=== PATIENT | female | born 1935 | race Caucasian/White ===

== ENCOUNTER 2017-04-18 10:11 | Inpatient (IN) | payer MEDICARE, BC ==
[~2017-04-18] VITALS: Ht 154.9 cm; Wt 59.0 kg
[~2017-04-18 10:11] MED LIST: ALORA1 EAC1 TOP; AUGMENTIN PO; B-12 IM; BENTYL 10 MG CA10 M1 PO; CARISOPRODOL 3350 MG PO; CELEXA20 MG PO; COUMADIN 2.5MG2.5 M1 PO; COUMADIN 4 MG TA4 M1 PO; DARVOCET-N 1001 EAC1 PO; ISOSORBIDE DINI30 MG PO; LEVSIN0.125 MG PO; OSTERA TABLET1 EAC1 PO; OXYCODONE HCL 55 MG PO; OXYCODONE HCL10 M1 PO; OXYIR 5 MG CAPSU5 M1 PO; POTASSIUM PO; PREMARIN VAG CREAM VAG; PROCTOFOAM-HC F10 GM TOP; TRAMADOL 50 MG50 MG PO; TUMS CHEWA500 MG/11; VITAMIN D 5050000 I1 PO; VOLTAREN GEL 1100 G2 TOP; ZOCOR 20 MG TAB20 M1 PO; ZOLOFT PO
[2017-04-18 10:26] VITALS: BP 161/79
[2017-04-18] MEDS ORDERED: COUMADIN 4 MG TA4 M1 PO (10:47)
[2017-04-18 11:12] LABS: ABSOLUTE BASOPHILS 0.1 thou/uL (0.0-0.2); ABSOLUTE EOSINOPHILS 0.3 thou/uL (0.0-0.7); ABSOLUTE LYMPHOCYTES 0.5 thou/uL (0.8-5.3); ABSOLUTE MONOCYTES 0.5 thou/uL (0.0-1.2); ABSOLUTE NEUTROPHILS 3.7 thou/uL (1.6-8.1); EOSINOPHILS 6.3 %; HEMOGLOBIN 11.6 gm/dL (12.0-15.0); LYMPHOCYTES 10.4 %; MCH 27.8 pg (26.0-34.0); MCHC 32.1 g/dL (28.0-37.0); MCV 86.7 fL (80.0-100.0); MONOCYTES 10.5 %; MPV 8.3 fl. (7.2-11.1); NUCLEATED RBCS 0 /100WBC; PLATELET COUNT* 194 thou/uL (150-400); POLYS 71.8 %; RBC 4.16 mil/uL (4.20-5.00); RDW-CV 15.5 % (10.5-14.5); WBC 5.2 thou/uL (4.0-11.0)
[2017-04-18 11:22] LABS: ANION GAP 9 mmol/L (7-16); BUN 24 mg/dL (7-18); CALCIUM 8.9 mg/dL (8.5-10.1); CHLORIDE 108 mmol/L (98-107); CO2 27 mmol/L (21-32); CREATININE 1.3 mg/dL (0.6-1.3); GLUCOSE 91 mg/dL (70-99); POTASSIUM 3.8 mmol/L (3.5-5.1); SODIUM 144 mmol/L (136-145)
[2017-04-18 11:23] LABS: APTT 32.7 Seconds (25.0-31.3); INR 2.6; PROTIME 25.4 Seconds (9.20-11.50)
[2017-04-18 11:29] LABS: ALBUMIN 3.4 g/dL (3.4-5.0); ALKALINE PHOSPHATASE 79 U/L (46-116); SGOT 24 U/L (15-37); SGPT 16 U/L (30-65); TOTAL BILIRUBIN 0.5 mg/dL (<0.1-1.0); TOTAL PROTEIN 6.7 g/dL (6.4-8.2); TROPONIN-I LEVEL <0.06 ng/mL (<0.06)
[2017-04-18 12:17] LABS: URINE BILIRUBIN NEGATIVE (Negative); URINE BLOOD 2+ (Negative); URINE CLARITY CLEAR; URINE COLOR YELLOW; URINE GLUCOSE-RANDOM NEGATIVE (Negative); URINE KETONES NEGATIVE (Negative); URINE LEUKOCYTES-REFLEX NEGATIVE (Negative); URINE NITRITE-REFLEX NEGATIVE (Negative); URINE PROTEIN NEGATIVE (Negative); URINE UROBILINOGEN 0.2 E.U./dl (0.2-1.0)
[2017-04-18 12:25] LABS: CASTS None Seen /LPF (None Seen); CRYSTALS None Seen /LPF (None Seen); SQUAMOUS 0-3 Few /LPF (0-3)
[2017-04-18 12:26] LABS: BACTERIA-REFLEX None Seen /HPF (None Seen); URINE RBC 3-10 Few /HPF (0-2); URINE WBC-REFLEX 0-5 Rare /HPF (0-5)
[2017-04-18 15:59] LABS: CALCIUM 8.7 mg/dL (8.5-10.1); CREATININE 1.2 mg/dL (0.6-1.3); MAGNESIUM 1.4 mg/dL (1.8-2.4); POTASSIUM 3.9 mmol/L (3.5-5.1)
[2017-04-18 16:34] VITALS: BP 138/64
[2017-04-18 17:00] VITALS: BP 119/74
[2017-04-18] MEDS ORDERED: ZOCOR20 MG PO (17:56)
[2017-04-18 21:00] VITALS: BP 102/54
[2017-04-19 01:02] VITALS: BP 117/60
[2017-04-19 04:30] LABS: ABSOLUTE BASOPHILS 0.1 thou/uL (0.0-0.2); ABSOLUTE EOSINOPHILS 0.3 thou/uL (0.0-0.7); ABSOLUTE LYMPHOCYTES 1.1 thou/uL (0.8-5.3); ABSOLUTE MONOCYTES 0.7 thou/uL (0.0-1.2); ABSOLUTE NEUTROPHILS 4.1 thou/uL (1.6-8.1); BASOPHILS 0.9 %; EOSINOPHILS 5.5 %; HEMATOCRIT 27.8 % (37.0-47.0); LYMPHOCYTES 16.9 %; MCH 28.2 pg (26.0-34.0); MCHC 32.7 g/dL (28.0-37.0); MCV 86.3 fL (80.0-100.0); MONOCYTES 11.5 %; MPV 8.9 fl. (7.2-11.1); NUCLEATED RBCS 0 /100WBC; PLATELET COUNT* 148 thou/uL (150-400); POLYS 65.2 %; RBC 3.22 mil/uL (4.20-5.00); RDW-CV 15.5 % (10.5-14.5); WBC 6.2 thou/uL (4.0-11.0)
[2017-04-19 04:39] LABS: HEMOGLOBIN 9.1 gm/dL (12.0-15.0)
[2017-04-19 04:52] VITALS: BP 124/58
[2017-04-19 08:15] VITALS: BP 99/52
--- NOTE | 2017-04-19 11:15 | EKG ---
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: [place] : 1935 Requested By: Chris Palacio Order Number: [id number] MD: Nick Moreno Measurements Intervals [place] Rate: 57 P: -13 CT: 143 QRS: -55 QRSD: 129 T: 20 QT: 502 QTc: 489 Interpretive Statements Sinus rhythm RBBB and LAFB Compared to ECG 08/08/2016 11:37:11 No significant changes Electronically Signed On 04-19-2017 11:15:45 TOURIST INFORMATION ASSISTANT by Nick Moreno [email or web address] <ELECTRONICALLY SIGNED> By: Nick Moreno MD, [facility] 04/19/17 1115 [id number] [id number] Nick Moreno MD, [facility] /EPI
[2017-04-19 16:00] VITALS: BP 104/58
[2017-04-19 20:45] VITALS: BP 90/50
[2017-04-20 00:49] VITALS: BP 100/48
[2017-04-20 03:54] VITALS: BP 102/59
[2017-04-20 04:04] LABS: INR 2.5; PROTIME 24.2 Seconds (9.20-11.50)
[2017-04-20 07:50] VITALS: BP 98/53
[2017-04-20 16:00] VITALS: BP 115/60
[2017-04-20 20:20] VITALS: BP 120/59
[2017-04-21 00:15] VITALS: BP 111/60
[2017-04-21 04:37] LABS: HEMATOCRIT 24.2 % (37.0-47.0); HEMOGLOBIN 7.8 gm/dL (12.0-15.0); MCHC 32.5 g/dL (28.0-37.0); MCV 86.2 fL (80.0-100.0); RBC 2.81 mil/uL (4.20-5.00); RDW-CV 15.6 % (10.5-14.5); WBC 6.7 thou/uL (4.0-11.0)
[2017-04-21 04:59] LABS: CALCIUM 8.3 mg/dL (8.5-10.1); CREATININE 0.9 mg/dL (0.6-1.3); MAGNESIUM 1.4 mg/dL (1.8-2.4); POTASSIUM 4.4 mmol/L (3.5-5.1)
--- NOTE | 2017-04-21 06:51 | CON ---
[address] [address] CONSULTATION Name: ADI BOOGIE Room: [address] IN .R.#: [id number] Admission: 04/18/17 Attend Phys: Ferdinand Aviles Discharge: Date of : 37 Report #: [id number] THIS REPORT FOR: //name// CC: Dima Lima DATE OF SERVICE: 04/18/2017 HISTORY OF PRESENT ILLNESS: The patient is a well-known patient of mine. This 81-year-old female was at home when out on the driveway to get her newspaper, slipped and fell and then actually crawled back into the garage to get assistance and complains of pain about the left hip region. She was unable to ambulate secondary to her discomfort. The patient at this point in time does not complain of any other discomforts anywhere else. Her pain is about a 7/10. I did see her in the Emergency Room. PAST MEDICAL HISTORY: Right knee total joint replacement. PAST SURGICAL HISTORY: Knee replacement surgery, renal stones that required removal, cholecystectomy, hysterectomy, both ears have had surgery. She has had stomach hernia and a bladder surgery. MEDICATIONS: This patient also does have current medications of Coumadin, she is on that 4 mg a day; citalopram; isosorbide dinitrate 30 mg p.o. daily. She takes a Voltaren gel. She does take some dicyclomine hydrochloride at bed 10 mg, vitamin D3, oxycodone for pain, and tramadol for pain. ALLERGIES: SHE DOES HAVE MULTIPLE ALLERGY LIST INCLUDING ACETAMINOPHEN, BELLADONNA, CHLORPHENIRAMINE, CODEINE, CORTISONE, LEVOFLOXACIN, MORPHINE, PHENOBARBITAL, BACTRIM, AMITRIPTYLINE, ERYTHROMYCIN, NEXIUM, DRISTAN AND . SOCIAL HISTORY: The patient does have family. No smoking or alcohol consumption. REVIEW OF SYSTEMS: MUSCULOSKELETAL: She complains of pain about the left hip region. Otherwise, her 10-point review is totally unremarkable. PHYSICAL EXAMINATION: VITAL SIGNS: Show that she has about 160/79 BP, pulse ox is 97 in the ER, pulse 60, respiration is 16. GENERAL: This is a very pleasant, alert, oriented, and cooperative 81-year-old female. HEENT: Normocephalic. Sclerae white. Mucous membranes are moist. NECK: Supple. LUNGS: Clear to auscultation[place] [address] CONSULTATION Name: ADI BOOGIE Room: [address]#: [id number] Admission: 04/18/17 Attend Phys: Ferdinand Aviles Discharge: Date of : 37 Report #: [id number] HEART: She does demonstrate no murmur per the ER note, but I do not even see any edema distally in the legs. MUSCULOSKETAL: The patient's back has a little low back pain associated with the hip fracture, I do suspect. She has good motion of the upper extremities in the right leg but the left leg is painful with arc of motion. She has a large contusion, hematoma developing over the left hip region, most likely from her Coumadin. NEUROLOGIC: Cranial nerves 2-12 intact. IMAGING: CT of the pelvis show a greater trochanteric fracture of the left hip. She has severe arthritis of lumbar spine as well. IMPRESSION: Fall today on 04/18/2017, left greater trochanteric hip fracture, hematoma to the left hip region, chronic Coumadin therapy. RECOMMENDATION: Pain control. She most likely might have to have that Coumadin held secondary to the large hematoma that she has, but I will leave that up to Medicine. Definitely can ice the hematoma down though. The patient also will need walker assistance for gait training with therapy. She can weightbear as tolerated and will most likely can be discharged when her pain and ambulation is satisfactory and stable. It has been our pleasure taking care of her and seeing her today. <ELECTRONICALLY SIGNED> By: Kyle Camp DO 04/21/17 0651 [id number] Camp DO /nt
[2017-04-21 08:24] VITALS: BP 134/60
[2017-04-21 14:29] VITALS: BP 134/60
[2017-04-21 17:35] LABS: % SATURATION 6 % (20-39); IRON 13 ug/dL (50-175)
[2017-04-21] MEDS ORDERED: ISOSORBIDE DINI30 MG PO (18:38)
[2017-04-21] MEDS ORDERED: PROCTOFOAM-HC F10 GM TOP (18:40)
--- NOTE | 2017-05-05 14:12 | CON ---
[address] [address] CONSULTATION Name: ADI BOOGIE Room: [address] IN M.R.#: [id number] Admission: 04/18/17 Attend Phys: Ferdinand Aviles Discharge: 04/21/17 Date of : 37 Report #: [id number] THIS REPORT FOR: //name// CC: Dima Lima DATE OF SERVICE: 04/21/2017 REASON FOR CONSULTATION: Evaluation and recommendations regarding post-acute rehabilitation in an 81-year-old female who had a mechanical fall at the home setting where she sustained a left femur fracture that was treated by ortho conservatively with weightbearing as tolerated. She did have chronic Coumadin therapy though and has a large hematoma. Her previous level of function was modified independent utilizing a front-wheeled walker at the home setting where she lives alone. Current level of function with physical therapy is minimum to moderate assistance depending on therapy, activity and time of day. She is standby assist to moderate assistance with occupational therapies depending on therapy, activity and time of day. She does have multiple medical comorbidities requiring daily medical care as well as pain control. Currently, her anticoagulation is being held. She does not have anyone at the home setting that can help her with her ADLs. PAST MEDICAL AND SURGICAL HISTORY: Right total knee replacement, renal stones, cholecystectomy, hysterectomy, ear surgery, stomach hernia and a bladder surgery. MEDICATIONS: Reviewed and reconciled by myself and are available in the [facility]. ALLERGIES: ACETAMINOPHEN, BELLADONNA, CHLORPHENIRAMINE, CODEINE, cortisone, LEVOFLOXACIN, MORPHINE, PHENOBARBITAL, BACTRIM, AMITRIPTYLINE, ERYTHROMYCIN, NEXIUM, DRISTAN. SOCIAL HISTORY: No tobacco, alcohol or illicit drug use. FAMILY HISTORY: Heart disease. REVIEW OF SYSTEMS: A 14-point review of systems is done and is negative except as mentioned in the HPI, specifically no fever, chest pain, shortness of breath or abdominal pain. PHYSICAL EXAMINATION: GENERAL: Alert, oriented, no apparent distress. VITAL SIGNS: Reviewed and are stable. HEENT: Atraumatic, normocephalic. Pupils are equal, round, reactive. ABDOMEN: Soft, nontender, nondistended. NEUROLOGIC: Cranial nerves 2-12 are grossly intact. [place] [address] CONSULTATION Name: CHUYITAADI Room: [address] IN [facility].#: [id number] Admission: 04/18/17 Attend Phys: Ferdinand Aviles Discharge: 04/21/17 Date of : 37 Report #: [id number] Left side does show a large hematoma. SKIN: Warm and dry otherwise. ASSESSMENT: 1. Mechanical fall sustaining a left femur fracture with weightbearing as tolerated. 2. Large hematoma with chronic anticoagulation, currently being held, but needs to be restarted. 3. Multiple medical comorbidities. PLAN: 1. Recommend acute inpatient rehabilitation to facilitate safe discharge to the home setting. 2. We will anticipate her arrival with physical and occupational therapy as soon as she is ready for discharge. <ELECTRONICALLY SIGNED> By: Gely Mccormack DO 05/05/17 1412 1456 [id number] Mccormack DO /nt
== END 2017-04-21 19:00 | DRG 536 ==
LOC: M.ERS 10:11 → M.ORTHSURG 13:45 → M.TBA-ER 13:45 → M.ORTHSURG 16:55
PROVIDERS: Family Medicine; Internal Medicine; ADMIT Internal Medicine
DX: S72.102A Unspecified trochanteric fracture of left femur, initial encounter for closed fracture (principal); D62 Acute posthemorrhagic anemia; D68.9 Coagulation defect, unspecified; T45.515A Adverse effect of anticoagulants, initial encounter; S70.02XA Contusion of left hip, initial encounter; Z96.651 Presence of right artificial knee joint; K58.9 Irritable bowel syndrome, unspecified; F32.9 Major depressive disorder, single episode, unspecified; W01.0XXA Fall on same level from slipping, tripping and stumbling without subsequent striking against object, initial encounter; Y93.89 Activity, other specified; Y92.89 Other specified places as the place of occurrence of the external cause; Y99.8 Other external cause status; Z90.49 Acquired absence of other specified parts of digestive tract; Z90.710 Acquired absence of both cervix and uterus; Z79.899 Other long term (current) drug therapy; Z88.6 Allergy status to analgesic agent; Z88.1 Allergy status to other antibiotic agents; Z88.2 Allergy status to sulfonamides; Z88.8 Allergy status to other drugs, medicaments and biological substances; Z82.49 Family history of ischemic heart disease and other diseases of the circulatory system; Z86.718 Personal history of other venous thrombosis and embolism

== ENCOUNTER 2017-04-21 17:16 | Inpatient (IN) | payer MEDICARE, BC ==
[~2017-04-21] VITALS: Ht 154.9 cm; Wt 65.3 kg
[~2017-04-21 17:16] MED LIST changes: +ZOCOR20 MG PO
[2017-04-21] MEDS ORDERED: ISOSORBIDE DINI30 MG PO (18:38)
[2017-04-21] MEDS ORDERED: PROCTOFOAM-HC F10 GM TOP (18:40)
[2017-04-21 20:00] VITALS: BP 133/52
--- NOTE | 2017-04-21 23:39 | NUR ---
ASSUMED CARE AT 1930 WHEN PATIENT ADMITTED TO ROOM 225 S/P FRACTURE LT HIP. TRANSPORTED BY W/C. ALERT, ORIENTED. ORIENTED TO REHAB ROUTINES. TAKES PILLS WHOLE ALL AT ONE TIME WITH WATER. UP WITH ONE, GAIT BELT, WALKER. DID AMB WITH WBAT TO LLE TO TOILET, SLOW AND PAINFUL. WILL USE BSC THROUGH NIGHT. ABLE TO DO HYGIENE, NEEDS HELP WITH ADJUSTING UNDERWEAR. STATES SHE USES PADS EVERY DAY AND HAS STRESS INCONTINENCE. VERY PLEASANT. DURING ASSESSMENT SHE STATES THAT HE WAS FEELING THOUGH LIFE WAS NOT WORTH LIVING BUT THAT WAS RESOLVED WHEN SHE STARTED TAKING CELEXA. SHE ALSO GAVE HER 'S GUNS TO HER SON WHEN HER BECAUSE SHE "DIDN'T KNOW WHAT I MIGHT DO WITH THEM" BUT THIS ALSO IS RESOLVED NOW SHE IS ON CELEXA. LT HIP HAS EXTENSIVE BRUISING, PATIENT ABLE TO MOVE ALL EXTREMITIES. HIGHLY MOTIVATED TO GET STRONGER SO SHE CAN GO HOME. HOURLY ROUNDS CONTINUE. BED ALARM ON. CALL LITE IN REACH.
[2017-04-22 05:37] LABS: HEMATOCRIT 25.6 % (37.0-47.0); HEMOGLOBIN 8.3 gm/dL (12.0-15.0); MCH 28.4 pg (26.0-34.0); MCHC 32.5 g/dL (28.0-37.0); MCV 87.3 fL (80.0-100.0); MPV 9.1 fl. (7.2-11.1); RBC 2.93 mil/uL (4.20-5.00); WBC 6.2 thou/uL (4.0-11.0)
[2017-04-22 06:06] LABS: CALCIUM 8.4 mg/dL (8.5-10.1); CREATININE 1.1 mg/dL (0.6-1.3); MAGNESIUM 1.5 mg/dL (1.8-2.4); POTASSIUM 4.7 mmol/L (3.5-5.1)
--- NOTE | 2017-04-22 06:15 | NUR ---
SLEPT MOST OF THE NIGHT. MEDICATED FOR PAIN WITH RELIEF. UP WITH ONE, GAIT BELT, WALKER, BSC. DOES OWN HYGEINE. HOURLY ROUNDS CONTINUE. BED ALARM ON. CALL LITE IN REACH.
[2017-04-22 08:02] VITALS: BP 111/62
--- NOTE | 2017-04-22 09:32 | NUR ---
Nutrition: Pt assessed for new Rehab admit. Admitted with Lt hip FX. H/o IBS, blood loss anmeia. Regular diet. Eating well, per RN. Pt was in therapy at time of visit. Wt: 127#. Per DNage, pt has lost ~15# since August of 2016. This is a mild to moderate loss. Albumin is 3.4. Pt appears at low nutrition risk, despite the weight loss. Her BMI 24.2. Will follow her po intake, wt, labs weekly. Oral supplements are available if po intake decreases to <50% of meals.
--- NOTE | 2017-04-22 11:25 | NUR ---
AM ASSESSMENT AND VITAL SIGNS COMPLETED DOCUMENTED. INITIALLY PT DENIED PAIN BUT REQUESTED PAIN AND NAUSEA MEDS AFTER THERAPY, C/O PAIN AT A 9/10. COUMADIN REMAINS HOLD, PT/INR WILL BE REPEATED TODAY. FALL PRECAUTIONS AND HOURLY ROUNDING IN PLACE. NO ACUTE DISTRESS, WILL CONTINUE TO MONITOR.
[2017-04-22 11:52] LABS: PROTIME 11.3 Seconds (9.20-11.50)
[2017-04-22 11:53] LABS: INR 1.2
--- NOTE | 2017-04-22 16:47 | NUR ---
SW met with pt to complete initial assessment, introduce self, and SW role. Pt alert and oriented, pleasant and talkative. Pt lives at home alone and is independent and active. Pt has rolling walker and prefers [facility]. Pt says her goal is to return home alone and be independent again. Pt says that she has fallen 9 times and plans to try to continue to be very careful. Pt signed consent/pt rights form. No other concerns or questions at this time. SW to continue to follow to assist with safe dc planning.
--- NOTE | 2017-04-22 18:32 | NUR ---
PT COMPLETED ALL THERAPIES. PRN PAIN AND NAUSEA MEDICATIONS GIVEN REQUESTED. NO CHANGE IN PLAN OF CARE.
[2017-04-22 20:25] VITALS: BP 125/67
[2017-04-23 05:07] LABS: HEMATOCRIT 22.7 % (37.0-47.0); HEMOGLOBIN 7.5 gm/dL (12.0-15.0); MCH 28.4 pg (26.0-34.0); MCHC 32.8 g/dL (28.0-37.0); MCV 86.7 fL (80.0-100.0); MPV 8.7 fl. (7.2-11.1); NUCLEATED RBCS 0 /100WBC; PLATELET COUNT* 189 thou/uL (150-400); RBC 2.62 mil/uL (4.20-5.00); RDW-CV 15.3 % (10.5-14.5); WBC 4.5 thou/uL (4.0-11.0)
--- NOTE | 2017-04-23 05:26 | NUR ---
ASSUMED CARES AT 1920. PT ALREADY IN BED. ALERT AND ORIENTED. PLEASANT. LEFT HIP FX. WBAT LLE. C/O PAIN TO HIP. PAIN MEDS GIVEN NEEDED. TAKES PILLS WHOLE WITHOUT ISSUES. PT REFUSED MILK OF MAG AND SO PRUNE JUICE GIVEN BUT PT DEVELOPED NAUSEA. ZOFRAN GIVEN WITH SOME RELIEF. UP TO BSC X 1. PERIPAD. SLEPT MOST OF THE NIGHT. CALL LIGHT IN REACH. BED ALARM ON.
[2017-04-23 05:41] LABS: CALCIUM 8.3 mg/dL (8.5-10.1); CREATININE 1.3 mg/dL (0.6-1.3)
[2017-04-23 06:58] LABS: ABSOLUTE BASOPHILS 0.3 thou/uL (0.0-0.2); ABSOLUTE EOSINOPHILS 0.3 thou/uL (0.0-0.7); ABSOLUTE LYMPHOCYTES 0.9 thou/uL (0.8-5.3); ABSOLUTE MONOCYTES 0.3 thou/uL (0.0-1.2); ABSOLUTE NEUTROPHILS 2.8 thou/uL (1.6-8.1)
[2017-04-23 06:59] LABS: PLATELET ESTIMATE ADEQUATE
[2017-04-23 07:30] VITALS: BP 133/61
[2017-04-23 10:24] LABS: BE -0.4 mmol/L (-2 to +3); HCO3 24.4 mmol/L (22.0-26.0); PCO2 40.4 mmHg (35.0-45.0); PO2 77.4 mmHg (75.0-100.0); pH 7.398 (7.340-7.450)
[2017-04-23 11:05] LABS: HEMATOCRIT 26.2 % (37.0-47.0); HEMOGLOBIN 8.4 gm/dL (12.0-15.0); MCH 28.3 pg (26.0-34.0); MCHC 31.9 g/dL (28.0-37.0); MCV 88.4 fL (80.0-100.0); MPV 8.5 fl. (7.2-11.1); RBC 2.96 mil/uL (4.20-5.00); WBC 5.7 thou/uL (4.0-11.0)
[2017-04-23 11:14] LABS: APTT 24.4 Seconds (25.0-31.3); INR 1.1
[2017-04-23 11:22] LABS: ANION GAP 6 mmol/L (7-16); BUN 22 mg/dL (7-18); CALCIUM 8.9 mg/dL (8.5-10.1); CHLORIDE 106 mmol/L (98-107); CO2 28 mmol/L (21-32); CREATININE 1.4 mg/dL (0.6-1.3); GLUCOSE 124 mg/dL (70-99); POTASSIUM 4.2 mmol/L (3.5-5.1); SODIUM 140 mmol/L (136-145)
[2017-04-23 11:29] LABS: ALBUMIN 2.5 g/dL (3.4-5.0); ALKALINE PHOSPHATASE 68 U/L (46-116); SGOT 19 U/L (15-37); SGPT 13 U/L (30-65); TOTAL BILIRUBIN 0.7 mg/dL (<0.1-1.0); TOTAL PROTEIN 5.7 g/dL (6.4-8.2); TROPONIN-I LEVEL <0.06 ng/mL (<0.06)
--- NOTE | 2017-04-23 14:09 | NUR ---
AM ASSESSMENT AND VITAL SIGNS COMPLETED DOCUMENTED. PT ASSISTED TO THE BATHROOM AND THEN TO A CHAIR FOR BREAKFAST. AT 0950 PT BECAME VERY DIZZY WHILE STILL SITTING IN THE CHAIR AND WAS ASSISTED BACK TO BED BY PHYSICAL THERAPY. BLOOD PRESSURE WAS 60/30, PULSE THREADY AND PT SLOW TO RESPOND TO QUESTIONS. SUPERVISOR THROWING DEPARTMENT CALLED FOR FURTHER ASSESSMENT AND TREATMENT. PT's BP RETURNED TO SBP>90 WITH A 500 CC FLUID BOLUS. LABS AND ABG WERE WNL OTHER THAN HGB OF 8.4, PT STATES SHE WOULD PREFER TO NOT HAVE A TRANSFUSION IF POSSIBLE. THERAPY PLACED ON HOLD FOR TODAY, IV FLUID INFUSING, WILL CONTINUE TO MONITOR.
[2017-04-23 15:18] LABS: URINE BILIRUBIN NEGATIVE (Negative); URINE BLOOD NEGATIVE (Negative); URINE CLARITY CLEAR; URINE COLOR YELLOW; URINE GLUCOSE-RANDOM NEGATIVE (Negative); URINE KETONES NEGATIVE (Negative); URINE LEUKOCYTES 1+ (Negative); URINE NITRITE POSITIVE (Negative); URINE PROTEIN NEGATIVE (Negative); URINE UROBILINOGEN 0.2 E.U./dl (0.2-1.0)
[2017-04-23 15:33] LABS: BACTERIA >30 Many /HPF (None Seen); SQUAMOUS 4-10 Moderate /LPF (0-3)
[2017-04-23 15:34] LABS: HYALINE CASTS 4-10 Moderate /LPF (None Seen)
[2017-04-23 15:36] LABS: CRYSTALS None Seen /LPF (None Seen); MUCUS None Seen strn/LPF (None Seen); URINE RBC 0-2 Rare /HPF (0-2)
--- NOTE | 2017-04-23 18:37 | NUR ---
PT HAS RESTED IN BED THE REMAINDER OF THIS SHIFT. NS INFUSING AT 75CC/HR X 1 LITER ONLY. PT HAS BEEN UP TO THE BEDSIDE COMMODE WITH NO FURTHER C/O DIZZINESS. THERAPY WILL RESUME TOMMORROW. FREQUENT OBSERVATION, HOURLY ROUNDING AND FALL PRECAUTIONS IN PLACE.
[2017-04-23 20:53] VITALS: BP 100/46
[2017-04-24 03:49] LABS: ABSOLUTE EOSINOPHILS 0.5 thou/uL (0.0-0.7); ABSOLUTE LYMPHOCYTES 1.1 thou/uL (0.8-5.3); ABSOLUTE MONOCYTES 0.7 thou/uL (0.0-1.2); ABSOLUTE NEUTROPHILS 3.1 thou/uL (1.6-8.1); BASOPHILS 0.7 %; EOSINOPHILS 9.2 %; HEMATOCRIT 22.6 % (37.0-47.0); HEMOGLOBIN 7.3 gm/dL (12.0-15.0); LYMPHOCYTES 20.2 %; MCH 28.1 pg (26.0-34.0); MCHC 32.2 g/dL (28.0-37.0); MCV 87.4 fL (80.0-100.0); MONOCYTES 13.3 %; MPV 8.2 fl. (7.2-11.1); NUCLEATED RBCS 0 /100WBC; PLATELET COUNT* 185 thou/uL (150-400); POLYS 56.6 %; RBC 2.59 mil/uL (4.20-5.00); RDW-CV 15.5 % (10.5-14.5); WBC 5.4 thou/uL (4.0-11.0)
[2017-04-24 04:00] LABS: CALCIUM 8.2 mg/dL (8.5-10.1); CREATININE 1.1 mg/dL (0.6-1.3)
--- NOTE | 2017-04-24 07:48 | NUR ---
ASSUMED CARES AT 1920. PT ALERT AND ORIENTED. PLEASANT. FEELING TIRED AND WEAK. IV SALINE LOCK TO RIGHT HAND. PT IS INCREASING HER ORAL FLUID INTAKE. SHE STATES SHE NORMALLY ONLY DRINKS MTN DEW AT HOME. DENIES ANY FURTHER NAUSEA. C/O PAIN TO LEFT HIP. PAIN MEDS GIVEN NEEDED. TAKES PILLS WITHOUT ISSUES. DISCUSSED BOWEL MANAGEMENT. PT HAS NOT HAD BM FOR SEVERAL DAYS NOW. SHE IS AGREEABLE TO SUPPOSITORY AND SO THIS WAS PLACED THIS AM. SHE IS A MOD ASSIST WITH GAIT BELT AND WALKER. UP TO BS FEW TIMES DURING THE NIGHT. DOES OWN CARES. HAS PERIPAD. PT SLEPT OFF AND ON IN SHORT PERIODS. IS IN GOOD SPIRITS THIS AM. IS HOPING TO BE ABLE TO HAVE BM. CALL LIGHT IN REACH AND BED ALARM ON.
[2017-04-24 08:07] VITALS: BP 119/58
--- NOTE | 2017-04-24 16:33 | NUR ---
PT CALLS FOR ASSIST NEEDS AND AMBULATES TO COMMODE WITH GAITBELT, WALKER AND MIN ASSIST OF 1. PRN FOR PAIN OT LT HIP AND THIGH AREA GIVEN WITH GOOD EFFECT.PT IS CONTINENT OF BLADDER AND HAS HAD SMALL BM THIS AM.SL INTACT TO RT. WRIST. PT TOLERATES MEALS AND FEEDS SELF. PT WEARS BREIF FOR STRESS INC, BUT CALLS FOR ASSIST TO BSC. PT CONTINUES TO PROGRESS TOWARDS GOALS AND HOURLY ROUNDING CONTINUES.
[2017-04-24 17:12] VITALS: BP 115/59
[2017-04-24 20:08] VITALS: BP 110/57
--- NOTE | 2017-04-25 05:14 | NUR ---
ASSUMED PT CARE AT 1930. PT ALERT AND ORIENTED X4, POLITE AND COOPERATIVE WITH CARES. PT VERY TALKATIVE. IV SALINE LOCK TO RIGHT HAND. PT HAD GOOD PO FLUID INTAKE. NO C/O NAUSEA. PRN PAIN MEDICATIONS GIVEN NEEEDED FOR LEFT HIP PAIN. PT TAKES PILLS WHOLE WITH WATER WITHOUT DIFFICULTY. PT UP WITH MOD ASSIST, GAIT BELT AND WALKER. UP TO BSC TO VOID OVERNIGHT. DOES OWN PERICARES AND WEARS PERIPAD. PT SLEPT OFF AND ON. PT OPINING LACK OF BOWEL MOVEMENT. WILL OFFER SUPPOSITORY WITH MORNING MEDS. USES CALL LIGHT APPROPRIATELY. CALL LIGHT AND FREQUENTLY USED ITEMS WITHIN REACH. HOURLY ROUNDING IN PROGRESS, WILL CONTINUE TO MONITOR.
[2017-04-25 08:03] VITALS: BP 125/57
--- NOTE | 2017-04-25 18:30 | NUR ---
PT HAS BEEN GIVEN DULCOLAX SUPP THIS AFTERNOON AND HAD SMALL FORMED/SOFT BM AND VOIDS WELL UP TO BSC. PT TAKES FEW STEPS WELL WITH WALKER, GAITBELT AND MIN ASSIST OF 1 TO W/C OR COMMODE. PRN FOR LT HIP PAIN GIVEN WITH GOOD EFFECT. PT TOLERATES MEALS AND HAS EATEN LUNCH IN DINNINGROOM BUT WANTED TO STAY CLOSE TO COMMODE FOR SUPPER. PT CALLS FOR ASSIST AND REMAINS ALERT AND ORIENTATED. PT PROGRESSES TOWARDS GOALS AND HOURLY ROUNDING CONTINUES.
[2017-04-25 20:10] VITALS: BP 145/70
[2017-04-26 04:29] LABS: INR 1.1; PROTIME 10.8 Seconds (9.20-11.50)
--- NOTE | 2017-04-26 05:01 | NUR ---
ASSUMED PT CARE AT 1920. PT ALERT AND ORIENTED X4, POLITE AND COOPERATIVE WITH CARES. PRN PAIN MEDICATIONS GIVEN NEEDED FOR LEFT HIP PAIN. TAKES PILLS WHOLE WITH WATER WITHOUT DIFFICULTY. PT UP WITH ASSIST OF ONE, GAIT BELT AND WALKER TO COMMODE. PT TOOK MILK OF MAGNESIA AT HS, NO STOOL THIS SHIFT. IV SALINE LOCK TO RIGHT HAND. NO C/O NAUSEA. CALL LIGHT AND FREQUENTLY USED ITEMS WITHIN REACH. BED ALARM ON FOR SAFETY. USES CALL LIGHT APPROPRIATELY. HOURLY ROUNDING IN PROGRESS, WILL CONTINUE TO MONITOR.
[2017-04-26 08:00] VITALS: BP 122/66
--- NOTE | 2017-04-26 18:21 | NUR ---
PT HAS PARTICIPATED WITH THERAPIES AND CALLS FOR ASSIST. PRN FOR PAIN GIVEN WITH GOOD EFFECT FOR LT HIP PAIN. PT AMBULATES WITH WALKER, GAITBELT AND MIN ASSIST OF 1.PT REMAINS ALERT AND ORIENTATED AND PROGRESSES TOWARDS GOALS, HOURLY ROUNDING CONTINUES.
[2017-04-26 20:00] VITALS: BP 109/52
--- NOTE | 2017-04-27 05:01 | NUR ---
ASSUMED PT CARE AT 1920. PT ALERT AND ORIENTED X4, POLITE AND COOPERATIVE WITH CARES. PRN PAIN MEDICATION GIVEN NEEDED FOR LEFT HIP PAIN. TAKES PILLS WHOLE WITH WATER WITHOUT DIFFICULTY. PT UP WITH ASSIST OF ONE, GAIT BELT AND WALKER TO COMMODE. NO STOOL THIS SHIFT. CALL LIGHT AND FREQUENTLY USED ITEMS WITHIN REACH. USES CALL LIGHT APPROPRIATELY. BED ALARM ON FOR SAFETY. HOURLY ROUNDING IN PROGRESS, WILL CONTINUE TO MONITOR.
[2017-04-27 08:00] VITALS: BP 126/58
--- NOTE | 2017-04-27 18:02 | NUR ---
PT CARE ASSUMED THIS AM, ASSESSMENT AND VITAL SIGNS COMPLETED DOCUMENTED. PT HAS PARTICIPATED WITH ALL THERAPIES TODAY, PAIN MANAGED WITH PRN OXY IR AND TRAMADOL. PT CONTINUES TO C/O CONSTIPATION, PRN MEDS GIVEN AND PT IS CONSIDERING A SUPPOSITORY. FALL PRECAUTIONS AND HOURLY ROUNDING CONTINUE. PT IS PROGRESSING TOWARD DOSCHARGE GOALS.
[2017-04-27 20:00] VITALS: BP 127/52
[2017-04-28 04:32] LABS: INR 1.1; PROTIME 10.8 Seconds (9.20-11.50)
[2017-04-28 04:47] LABS: CALCIUM 8.4 mg/dL (8.5-10.1); POTASSIUM 4.2 mmol/L (3.5-5.1)
[2017-04-28 04:55] LABS: ABSOLUTE BASOPHILS 0.1 thou/uL (0.0-0.2); ABSOLUTE EOSINOPHILS 0.5 thou/uL (0.0-0.7); ABSOLUTE LYMPHOCYTES 1.2 thou/uL (0.8-5.3); ABSOLUTE MONOCYTES 0.9 thou/uL (0.0-1.2); ABSOLUTE NEUTROPHILS 3.3 thou/uL (1.6-8.1); BASOPHILS 0.9 %; EOSINOPHILS 8.1 %; HEMATOCRIT 25.2 % (37.0-47.0); HEMOGLOBIN 8.2 gm/dL (12.0-15.0); LYMPHOCYTES 20.2 %; MCH 28.2 pg (26.0-34.0); MCHC 32.7 g/dL (28.0-37.0); MCV 86.3 fL (80.0-100.0); MONOCYTES 15.2 %; MPV 8.4 fl. (7.2-11.1); NUCLEATED RBCS 0 /100WBC; PLATELET COUNT* 231 thou/uL (150-400); POLYS 55.6 %; RBC 2.91 mil/uL (4.20-5.00); RDW-CV 15.4 % (10.5-14.5); WBC 5.8 thou/uL (4.0-11.0)
--- NOTE | 2017-04-28 05:11 | NUR ---
ASSUMED CARE AT 1920. PT ALERT AND ORIENTED. PLEASANT. S/P LEFT HIP FRACTURE. WBAT LLE. C/O OF MUCH PAIN TO LEFT HIP. ICE PACK GIVEN. PAIN MEDS GIVEN PRN. TAKES PILLS WITHOUT ISSUES. SHE IS A MOD ASSIST WITH GAIT BELT AND WALKER. UP TO BATHROOM. DOES OWN CARES. PT HOPEFUL THAT CAN HAVE BM. ATE PRUNES EARLIER. DRINKING MORE. SLEPT OFF AND ON. USED CALL LIGHT APPROPRIATELY. BED ALARM ON.
[2017-04-28 08:00] VITALS: BP 135/55
--- NOTE | 2017-04-28 17:16 | NUR ---
SW met with pt to review team conference summary with pt. Plan for team to reassess pt length of stay during team conference next Friday 05/05. Pt in agreement with plan and said that she plans to make progress in therapies and is hopeful that she will not be so dizzy after changes in medication so that she can feel more confident about doing more therapies. SW to continue to follow to assist with safe dc planning.
--- NOTE | 2017-04-28 18:12 | NUR ---
AM ASSESSMENT AND VITAL SIGNS COMPLETED DOCUMENTED. PT HAD ANOTHER EPISODE OF HYPOTENSION THIS AM, HIMS WAS NOTIFIED AND ISOSORBIDE HAS BEEN DC'D. PT's BP GRADUALLY CAME BACK TO NORMAL AND SHE WAS ABLE TO PARTICIPATE IN THERAPY THIS AFTERNOON. PRN MEDICATION GIVEN FOR PAIN. PT HAS REQUESTED A SUPPOSITORY AT HS. HOURLY ROUNDING AND FALL PRECAUTIONS IN PLACE.
[2017-04-28 20:06] VITALS: BP 98/50
--- NOTE | 2017-04-28 20:15 | NUR ---
SITTING UP IN CHAIR WATCHING TV. VOIDED PER BSC. NEEDS LIFTING ASSIST WITH LIFTING LEGS INTO BED. TOOK MEDS WHOLE WITH WATER. DOESN'T WANT PAIN MED UNTIL LATER. BISCODYL SUPPOSITORY GIVEN PER REQUEST FOR C/O CONSTIPATION.
[2017-04-29 04:20] LABS: ABSOLUTE EOSINOPHILS 0.4 thou/uL (0.0-0.7); ABSOLUTE LYMPHOCYTES 1.3 thou/uL (0.8-5.3); ABSOLUTE MONOCYTES 0.8 thou/uL (0.0-1.2); ABSOLUTE NEUTROPHILS 3.4 thou/uL (1.6-8.1); BASOPHILS 0.6 %; EOSINOPHILS 6.7 %; HEMATOCRIT 26.1 % (37.0-47.0); HEMOGLOBIN 8.4 gm/dL (12.0-15.0); LYMPHOCYTES 22.2 %; MCHC 32.2 g/dL (28.0-37.0); MCV 86.9 fL (80.0-100.0); MONOCYTES 13.3 %; MPV 8.4 fl. (7.2-11.1); NUCLEATED RBCS 0 /100WBC; PLATELET COUNT* 247 thou/uL (150-400); POLYS 57.2 %; RDW-CV 15.6 % (10.5-14.5)
[2017-04-29 04:24] LABS: CALCIUM 8.8 mg/dL (8.5-10.1); CREATININE 1.2 mg/dL (0.6-1.3); POTASSIUM 4.7 mmol/L (3.5-5.1)
[2017-04-29 04:28] LABS: INR 1.1; PROTIME 10.9 Seconds (9.20-11.50)
--- NOTE | 2017-04-29 05:15 | NUR ---
HAD A SMALL HARD BM AT 2114. RELIEF WITH OXYCODONE GIVEN AT 2154 FOR C/O LEFT HIP. NO FURTHER C/O PAIN. UP X TWO DURING THE NIGHT TO THE BSC TO VOID. HOURLY ROUNDING IN PROGRESS.
--- NOTE | 2017-04-29 16:16 | NUR ---
PT HAS WORKED WITH THERAPIES AND CALLS FOR ASSIST WITH ALL TRANSFERRS. PT AMBULATES WITH WALKER,GAITBELT AND MIN ASSIST OF 1 WITH STEADY GAIT. PT COMES TO RISING AFTER SITTING UP TO PREVENT DIZZINESS. PT VOIDS WELL AND HAS HAD MIRALAX WITH NO BM YET. PRN FOR LT HIP PAIN GIVEN WITH GOOD EFFECT. BRUSING TO LT HIP RESOLVING SLOWLEY. PT TOLERATES MEALS AND DENIES NAUSEA. PT CONTINUES TO PROGRESS TOWARDS GOALS AND HOURLY ROUNDING CONTINUES.
[2017-04-29 20:00] VITALS: BP 103/47
[2017-04-30 04:28] LABS: ABSOLUTE EOSINOPHILS 0.3 thou/uL (0.0-0.7); ABSOLUTE LYMPHOCYTES 1.1 thou/uL (0.8-5.3); ABSOLUTE MONOCYTES 0.8 thou/uL (0.0-1.2); ABSOLUTE NEUTROPHILS 4.2 thou/uL (1.6-8.1); BASOPHILS 0.7 %; EOSINOPHILS 5.1 %; HEMATOCRIT 27.8 % (37.0-47.0); HEMOGLOBIN 8.9 gm/dL (12.0-15.0); LYMPHOCYTES 17.2 %; MCH 28.2 pg (26.0-34.0); MCHC 32.1 g/dL (28.0-37.0); MCV 87.7 fL (80.0-100.0); MONOCYTES 12.9 %; MPV 8.3 fl. (7.2-11.1); NUCLEATED RBCS 0 /100WBC; PLATELET COUNT* 263 thou/uL (150-400); POLYS 64.1 %; RBC 3.17 mil/uL (4.20-5.00); RDW-CV 15.6 % (10.5-14.5); WBC 6.6 thou/uL (4.0-11.0)
[2017-04-30 04:33] LABS: INR 1.2; PROTIME 11.4 Seconds (9.20-11.50)
[2017-04-30 04:49] LABS: CALCIUM 8.6 mg/dL (8.5-10.1); CREATININE 1.2 mg/dL (0.6-1.3); POTASSIUM 4.6 mmol/L (3.5-5.1)
--- NOTE | 2017-04-30 05:01 | NUR ---
ASSUMED PT CARE AT 1920. PT ALERT AND ORIENTED X4, POLITE AND COOPERATIVE WITH CARES. PT HAS VISITOR WHO BROUGHT PT'S DOG TO VISIT AND IS HAVING HER NAILS DONE BY HER MANICURIST. DAUGHTER ALSO VISITED AFTER THE AFOREMENTIONED VISITORS. PT TAKES PILLS WHOLE WITH WATER WITHOUT DIFFICULTY. PT HAD SMALL EMESIS X2, CONSISTING OF PARTIALLY DISGESTED PRUNES. PER PT SHE IS OVERLY TIRED AND THINKS THAT SHE SAT UP TOO LONG WITH LEGS DANGLING DOWN. PRN PAIN MEDICATION GIVEN AT 2335 FOR LEFT HIP/LEG PAIN. ICE PACK TO LEFT HIP. PT UP TO BSC X3 OVERNIGHT TO VOID. NO STOOL THIS SHIFT. CALL LIGHT AND FREQUENTLY USED ITEMS WITHIN REACH. USES CALL LIGHT APPROPRIATELY. HOURLY ROUNDING IN PROGRESS, WILL CONTINUE TO MONITOR.
[2017-04-30 08:30] VITALS: BP 107/45
--- NOTE | 2017-04-30 09:16 | NUR ---
ASSESSMENT COMPLETED REFER TO COMPUTER CHARTING. PATIENT RESTING IN BED REPORTING PAIN BETTER, NO NAUSEA OR SHORTNESS OF BREATH. BED IN LOW AND LOCKED POSITION. CALL LIGHT WITHIN REACH. PATIENT UP WITH ASSISTANCE. WILL CONTINUE TO MONITOR THIS SHIFT.
[2017-04-30 20:15] VITALS: BP 102/51
--- NOTE | 2017-04-30 22:42 | NUR ---
ASSUMED CARE AT 1930. PATIENT S/P LT HIP FX. IN BED AT CHANGE OF SHIFT. UP WITH ONE, GAIT BELT, WALKER. VOIDED PER BSC. INTO BED. ATTEMPTED BM WITHOUT SUCCESS, BUT IS PASSING GAS. GIVEN MOM AT HS. ALREADY ON MIRILAX AND COLACE. NEEDS HELP GETTING BOTH LEGS BACK INTO BED. TAKES PILLS WHOLE WITH WATER. MEDICATED FOR PAIN AT HS. SEE JUN. HOURLY ROUNDS CONTINUE. BED ALARM ON. CALL LITE IN REACH.
[2017-05-01 04:21] LABS: INR 1.2
[2017-05-01 04:22] LABS: ABSOLUTE BASOPHILS 0.1 thou/uL (0.0-0.2); ABSOLUTE EOSINOPHILS 0.3 thou/uL (0.0-0.7); ABSOLUTE LYMPHOCYTES 1.3 thou/uL (0.8-5.3); ABSOLUTE MONOCYTES 0.9 thou/uL (0.0-1.2); ABSOLUTE NEUTROPHILS 3.5 thou/uL (1.6-8.1); BASOPHILS 0.9 %; HEMATOCRIT 27.2 % (37.0-47.0); HEMOGLOBIN 8.9 gm/dL (12.0-15.0); LYMPHOCYTES 22.1 %; MCH 28.4 pg (26.0-34.0); MCHC 32.9 g/dL (28.0-37.0); MCV 86.5 fL (80.0-100.0); MONOCYTES 14.6 %; MPV 8.2 fl. (7.2-11.1); NUCLEATED RBCS 0 /100WBC; PLATELET COUNT* 258 thou/uL (150-400); POLYS 57.4 %; RBC 3.15 mil/uL (4.20-5.00); RDW-CV 15.6 % (10.5-14.5); WBC 6.1 thou/uL (4.0-11.0)
[2017-05-01 04:27] LABS: CALCIUM 8.6 mg/dL (8.5-10.1); CREATININE 1.1 mg/dL (0.6-1.3)
--- NOTE | 2017-05-01 05:52 | NUR ---
SLPET MOST OF THE NIGHT EXCEPT TO VOID. UP TO BSC X3 THROUGH SHIFT. MOVES WELL IN BED. MEDICATED TWICE THIS SHIFT WITH RELIEF. HOURLY ROUNDS CONTINUE. BED ALARM ON. CALL LITE IN REACH.
--- NOTE | 2017-05-01 07:08 | NUR ---
HAD LARGE BM PER BSC.
[2017-05-01 07:30] VITALS: BP 115/50
--- NOTE | 2017-05-01 18:45 | NUR ---
ASSUMED CARE AT 0730. ALERT ORIENTED PLEASANT COOPERATIVE. HX OF L HIP FX WITHOUT SURGICAL INTERVENTION DONE. TRANSFERS WITH MIN SBA G BELT WALKER AND AMBULATES TO BR TO VOID HAD LARGE LOOSE BM IN BSC THIS A.M. FEEDS SELF TAKES MEDS WITHOUT DIFFICULTY. MEDICATED X 2 FOR C/O PAIN L HIP. PARTICIPATING IN THERAPIES TODAY. USES CALL LIGHT APPROPRIATELY FOR ASSIST CHAIR AND BED ALARM FOR PT. SAFETY. UP IN RECLINER WITH BLES ELEVATED. TO DR FOR MEALS.
[2017-05-01 20:10] VITALS: BP 138/85
--- NOTE | 2017-05-02 05:11 | NUR ---
ASSUMED CARES AT 1920. PT ALERT AND ORIENTED. PLEASANT. SHE IS A MOD ASSIST WITH GAIT BELT AND WALKER. UP TO BATHROOM. DID HAVE LARGE LIQUIDS STOOL DOES OWN CARES. C/O PAIN TO LEFT LEG. PAIN MEDS GIVEN NEEDED. TAKES PILLS WITHOUT ISSUES. SLEPT WELL MOST OF THE NIGHT. CALL LIGHT IN REACH.
[2017-05-02 07:30] VITALS: BP 114/56
[2017-05-02 07:56] LABS: INR 1.3; PROTIME 13.1 Seconds (9.20-11.50)
--- NOTE | 2017-05-02 16:10 | NUR ---
ASSUMED CARE AT 0730. ALERT ORIENTED PLEASANT COOPERATIVE. HX OF L HIP FRACTURE WBATLLE. BRUISING LEFT HIP BUTTOCKS. TRANSFERS WITH SBA G BELT WALKER AMBULATES TO BR TO VOID ABLE TO DO HYGEINE CLOTHING ADJUSTMENTS. MEDICATED X 1 FOR L HIP KNEE PAIN WITH SOME RELIEF STATED. FEEDS SELF WITH SET UP. USES CALL LIGHT FOR ASSIST BED CHAIR ALARM FOR PT. SAFETY. BLES ELEVATED WHEN IN RECLINER. DID OWN SPONGE BATH AND DRESSED AT SINK THIS A.M. WITH SET UP. TOOK NAP AFTER BATH AND BREAKFAST, VISITORS SON AND DAUGHTER IN [place] VISITED AT LUNCH WENT TO
[2017-05-02 20:00] VITALS: BP 98/46
--- NOTE | 2017-05-03 05:21 | NUR ---
ASSUMED CARES AT 1920. PT ALERT AND ORIENTED. PLEASANT. S/P LEFT HIP FRACTURE. WBAT LLE. C/O PAIN TO LEFT LEG. PAIN MEDS GIVEN NEEDED. SHE IS A MIN ASSIST WITH GAIT BELT AND WALKER. UP TO [facility]. DOES OWN CARES. WEARS PULLUPS. HAD LARGE LOOSE STOOL. C/O STOMACH UPSET. REFUSED MYLANTA AND ONLY WANTED LEMON UPPER SKAGIT SODA. SLEPT LITTLE OFF AND ON. CALL LIGHT IN REACH.
[2017-05-03 07:54] VITALS: BP 126/65
[2017-05-03 08:00] VITALS: BP 79/55
[2017-05-03 10:37] VITALS: BP 106/65
--- NOTE | 2017-05-03 14:42 | NUR ---
ASSUMED CARE AT 0730. ALERT ORIENTED PLEASANT COOPERATIVE. HX OF L HIP FX. WBATLLE. TRANSFERS WITH SBA G BELT WALKER AND AMBULATES TO BR TO VOID AND HAD A LARGE BM ABLE TO DO HYGEINE AND CLOTHING ADJUSTMENTS. PARTICIPATING IN THERAPIES TO DR FOR LUNCH MEAL. USES CALL LIGHT APPROPRIATELY FOR ASSIST.BED CHAIR ALARM FOR PT. SAFETY. FEEDS SELF AND TAKES MEDS WITTHOUT DIFFICULTY. MEDICATED X 1 FOR L HIP PAIN.. PTS. BP WAS LOW WHILE WORKING WITH O.TLorene THIS A.M. DR. SCHAEFER WAS ROUNDING LUNCH TIME AND AIDAN MIRAMONTES ALSO ROUNDED.
[2017-05-03 21:15] VITALS: BP 102/47
--- NOTE | 2017-05-03 21:15 | NUR ---
RESTING QUIETLY IN BED READING AND WATCHING TV. STATES LEFT HIP PAIN AT A "6" BUT DOESN'T WANT TO TAKE PAIN MEDS AT THIS TIME. DID PROVIDE AN ICE PACK PER REQUEST. AMBULATED TO THE BATHROOM WITH SBA TO CGA, GAITBELT, WALKER. GAIT SLIGHTLY UNSTEADY AT TIMES. DOES OWN HYGIENE AND CLOTHING ADJUSTMENTS. TOOK MEDS WHOLE WITH WATER.
[2017-05-04 04:10] LABS: ABSOLUTE EOSINOPHILS 0.4 thou/uL (0.0-0.7); ABSOLUTE LYMPHOCYTES 1.4 thou/uL (0.8-5.3); ABSOLUTE MONOCYTES 0.7 thou/uL (0.0-1.2); ABSOLUTE NEUTROPHILS 3.2 thou/uL (1.6-8.1); BASOPHILS 0.8 %; EOSINOPHILS 6.8 %; HEMATOCRIT 28.3 % (37.0-47.0); HEMOGLOBIN 8.8 gm/dL (12.0-15.0); LYMPHOCYTES 24.7 %; MCV 90.3 fL (80.0-100.0); MONOCYTES 12.7 %; MPV 8.2 fl. (7.2-11.1); NUCLEATED RBCS 0 /100WBC; PLATELET COUNT* 313 thou/uL (150-400); RBC 3.13 mil/uL (4.20-5.00); RDW-CV 16.7 % (10.5-14.5); WBC 5.8 thou/uL (4.0-11.0)
[2017-05-04 04:19] LABS: INR 1.9; PROTIME 18.5 Seconds (9.20-11.50)
[2017-05-04 04:30] LABS: CALCIUM 8.4 mg/dL (8.5-10.1); CREATININE 1.1 mg/dL (0.6-1.3); POTASSIUM 4.5 mmol/L (3.5-5.1)
--- NOTE | 2017-05-04 05:56 | NUR ---
UP X 2 TO THE BATHROOM AND X 1 TO BSC TO VOID. PAIN MED GIVEN AT 0221 FOR C/O LEFT HIP PAIN WITH RELIEF. HOURLY ROUNDING IN PROGRESS.
[2017-05-04 07:31] VITALS: BP 108/55
--- NOTE | 2017-05-04 16:29 | NUR ---
SW met with pt to follow up on pt progress in therapy and dc planning. Pt said that she is hopeful that she will have more time on rehab unit and that she still felt dizzy at times and was having trouble managing her BP symptoms. SW mentioned that pt may have ongoing BP symptoms to deal with at home and if pt is ready to dc from rehab, if pt would consider other support/assistance at home or even SNF if necessary. Pt said that she would not want to go to SNF and that she would feel better being able to dc home with services and she said that she would have neighbors check on her often. SW to continue to follow to assist with safe dc planning.
--- NOTE | 2017-05-04 17:54 | NUR ---
PT UP WITH SBA USING WALKER AND GAIT BELT. PAIN MANAGED WELL WITH ORDERED PAIN MEDICATION. PT ABLE TO MAKE NEEDS KNOWN, CALL LIGHT IN REACH
--- NOTE | 2017-05-04 19:45 | NUR ---
RESTING QUIETLY IN BED. STATES JUST HAD A SMALL BM. DENIES NEED FOR PAIN MEDS AT THIS TIME. TOOK MEDS WHOLE WITH WATER. SNACK PROVIDED.
[2017-05-04 21:01] VITALS: BP 102/52
[2017-05-05 04:37] LABS: INR 2.2; PROTIME 20.9 Seconds (9.20-11.50)
--- NOTE | 2017-05-05 06:25 | NUR ---
UP X 2 TO THE TOILET DURING THE NIGHT TO VOID AND ONCE TO THE BSC TO VOID. NO C/O DISCOMFORT. HOURLY ROUNDING IN PROGRESS.
[2017-05-05 07:35] VITALS: BP 106/53
--- NOTE | 2017-05-05 14:12 | H ---
[facility] [address] [place] [address] HISTORY AND PHYSICAL Name: ADI BOOGIE Room: [address] IN ..#: [id number] Admission: 04/21/17 Attend Phys: Gely Mccormack DO Discharge: Date of : 37 Report #: [id number] THIS REPORT FOR: //name// CC: Gely Mooney DATE OF SERVICE: 04/21/2017 HISTORY OF PRESENT ILLNESS: This is a female that had a mechanical fall in the house sustained a fracture of the femur, was nonoperatively treated and is weightbearing as tolerated. This is a patient that is known from previous consultation on orthopedic surgery. She is weightbearing as tolerating. Previous level of function is independent with activities of daily living. Current level of function is minimum to moderate assistance of 1-2 depending on activities, therapy and time of day. Estimated length of stay is 12-14 days with discharge disposition to the home setting where she should be modified independent at that time and does have family support. She does have multiple medical comorbidities requiring daily medical care. PAST MEDICAL HISTORY, SURGICAL HISTORY, FAMILY HISTORY AND SOCIAL HISTORY: Unchanged from consultation. REVIEW OF SYSTEMS: A 14-point review of systems is done and is negative except as mentioned in HPI, specifically no fever, chest pain, shortness of breath, change in bowel or change in bladder. PHYSICAL EXAMINATION: GENERAL: Alert, oriented, no apparent distress. VITAL SIGNS: Stable. HEENT: Atraumatic, normocephalic. Pupils equal, round, reactive. ABDOMEN: Soft, nontender, nondistended. SKIN: Warm and dry. IMPRESSION: 1. Mechanical fall. 2. Femur fracture conservatively treated. 3. Multiple medical comorbidities. 4. Alterations in activities of daily living. PLAN: 1. Admission to inpatient rehabilitation. 2. PT, OT, speech, language, case management, nursing [place] [id number] HISTORY AND PHYSICAL Name: ADI BOOGIE Room: [address] IN [facility].#: [id number] Admission: 04/21/17 Attend Phys: Gely Mccormack DO Discharge: Date of : 37 Report #: [id number] evaluations and recommendations. We will team her weekly and make changes plan of care as needed. <ELECTRONICALLY SIGNED> By: Gely Mccormack DO 05/05/17 1412 [id number] [id number] Mccormack DO /nt
--- NOTE | 2017-05-05 14:12 | PLAN ---
[facility] [address] [place] [address] REHAB UNIT PLAN OF CARE Name: ADI BOOGIE Room: [address] IN [facility].#: [id number] Admission: 04/21/17 Attend Phys: Gely Mccormack DO Discharge: Date of : 37 Report #: [id number] THIS REPORT FOR: //name// CC: Gely Mooney HISTORY OF PRESENT ILLNESS: This is an 81-year-old female admitted to inpatient rehabilitation to facilitate safe discharge home, status post left hip fracture. Previous level of function was independent with activities of daily living. Current level of function is [id number] assistance of 1-2 depending on therapy, activity and time of day. Comprehension, expression, and problem solving are all within normal limits. MEDICAL PROGNOSIS: Good. REHABILITATION PROGNOSIS: Good. Estimated length of stay is 14-16 days with discharge disposition to the home setting. She is weightbearing as tolerated on the left lower extremity. She does have multiple medical issues requiring daily medical care. Physical therapy will see the patient 60-90 minutes per day, 5 days per week, working on upper and lower body strength, balance, coordination, navigation. Occupational therapy will work with the patient 60-90 minutes per day, 5 days per week, working on upper and lower body strength, balance, coordination, navigation, bathing, dressing, and toileting. At this time, the patient is not requiring any cognitive therapies. This is an overall plan of care, may change from time to time. We will team her weekly and make changes to plan of care as needed. <ELECTRONICALLY SIGNED> By: Gely Mccormack DO 05/05/17 1412 1255 [id number] Mccormack DO /nt
--- NOTE | 2017-05-05 15:34 | NUR ---
SW met with pt to review team conference summary. SW discussed that therapists reported pt to be needing supervision to contact guard assist with all tasks of mobility and ADLs. SW explained that team would recommend pt to dc to SNF to continue to work towards goals of being mod I to I at home and that pt could use the time in SNF rehab to continue progress and return home after SNF stay. Pt was disappointed and said that she would not want to go to SNF and she would much rather stay here. SW explained that acute rehab setting is only allotted so much time and that sometimes pts need a little more time in SNF setting prior to dc home with HH. SW and pt discussed options of [facility] and [facility] and pt said she may have to go there but that she still was "bummed" by the situation. SW provided support and encouragement. SW faxed referrals to [facility] and [facility]. SW to continue to follow to assist with safe dc planning.
--- NOTE | 2017-05-05 16:50 | NUR ---
PT CALLS FOR ASSIST TO BATHROOM AND AMBULATES WITH WALKER,GAITBELT AND SBA OF 1. PT HAS HAD SMALL SOFT BM AND VOIDS WELL. PT ABLE TO CLEANSE SELF AND ADJUST CLOTHING. PT DOES TAKE TIME TO COME TO SITTING THEN ARISING AND HAS NOT REPORTED DIZZINESS TODAY. PRN FOR LT HIP PAIN GIVEN WITH GOOD EFFECT. PT TOLERATES MEALS AND DENIES NAUSEA. PT CONTINUES TO PROGRESS TOWARDS GOALS AND HOURLY ROUNDING CONTINUES.BRUSING RESOLVING TO LT HIP BUT FIRM EDEMA REMAINS TO LT HIP.
[2017-05-05 20:57] VITALS: BP 97/49
--- NOTE | 2017-05-06 05:32 | NUR ---
ASSUMED PT CARE AT 1920. PT ALERT AND ORIENTED X4, POLITE AND COOPERATIVE WITH CARES. PT UP WITH SBA, GAIT BELT AND WALKER TO BATHROOM TO VOID. PT DOES OWN PERICARES. PT SAD THAT SHE IS BEING DISCHARGED TO THE [facility] BUT REASSURED THAT SHE WILL STILL SEE THE SAME DOCTORS. PRN PAIN MEDICATION AT HS FOR LEFT HIP PAIN EFFECTIVE. PT SLEPT ALL NIGHT. CALL LIGHT AND FREQUENTLY USED ITEMS WITHIN REACH. USES CALL LIGHT APPROPRIATELY. HOURLY ROUNDING IN PROGRESS, WILL CONTINUE TO MONITOR.
[2017-05-06 05:55] LABS: INR 2.7; PROTIME 25.8 Seconds (9.20-11.50)
[2017-05-06 06:00] LABS: ABSOLUTE EOSINOPHILS 0.4 thou/uL (0.0-0.7); ABSOLUTE LYMPHOCYTES 1.2 thou/uL (0.8-5.3); ABSOLUTE MONOCYTES 0.7 thou/uL (0.0-1.2); ABSOLUTE NEUTROPHILS 2.8 thou/uL (1.6-8.1); EOSINOPHILS 7.5 %; HEMATOCRIT 28.7 % (37.0-47.0); HEMOGLOBIN 9.2 gm/dL (12.0-15.0); LYMPHOCYTES 23.4 %; MCH 27.8 pg (26.0-34.0); MCHC 32.1 g/dL (28.0-37.0); MCV 86.8 fL (80.0-100.0); MONOCYTES 13.9 %; MPV 7.9 fl. (7.2-11.1); NUCLEATED RBCS 0 /100WBC; PLATELET COUNT* 309 thou/uL (150-400); POLYS 54.2 %; RBC 3.31 mil/uL (4.20-5.00); RDW-CV 15.8 % (10.5-14.5); WBC 5.2 thou/uL (4.0-11.0)
[2017-05-06 06:12] LABS: CALCIUM 8.4 mg/dL (8.5-10.1); CREATININE 1.1 mg/dL (0.6-1.3); POTASSIUM 4.7 mmol/L (3.5-5.1)
[2017-05-06 08:21] VITALS: BP 114/61
--- NOTE | 2017-05-06 15:15 | NUR ---
PRESTON followed up with [facility] and [facility]. Maggie with admissions at [facility] informed SW that they would be able to accept pt on Wednesday. Faraz with admissions at [facility] said that they do not have any beds available and may not have any beds available until Wednesday. SW met with pt and discussed dc planning and expressed to pt option for pt to dc to [facility] tomorrow. Pt said that she was upset by that and she wanted to go to [facility] or else she "would just go home". Pt said she already told her family and friends that she was going to [facility] and she was sure that no one would visit her at [facility]. SW explained that [facility] SNF would be a safe dc plan and that [place] was not that far away that her family and friends may still be able to visit her. Pt still said she only wanted [facility] and that she wasn't even wanting SNF in the first place. SW explained to pt that SW would communicate situation with Dr Mccormack and that SW would follow up with pt in regards to dc plan and SW will continue to assist with finalizing safe dc plan as needed.
--- NOTE | 2017-05-06 18:02 | NUR ---
PT HAS PARTICIPATED WITH THERAPIES TODAY AND CALLS FOR ASSIST TO BATHROOM WITH WALKER,GAITBELT AND MIN ASSIST OF 1. PRN FOR PAIN TO LT HIP GIVEN WITH GOOD EFFECT. PT REPORTS HAVING LARGE BM THIS AM AFTER DRINKING MIRALAX AND VOIDS WELL. PT PROGRESSES TOWARDS GOALS AND HOURLY ROUNDING CONTINUES. PT TO DISCHARGE TO [facility] TOMORROW.
--- NOTE | 2017-05-06 20:10 | NUR ---
SITTING UP IN RECLINER WATCHING TV. PAIN MED GIVEN FOR C/O LEFT HIP PAIN. AMBULATED TO THE BATHROOM WITH SBA, GAITBELT, WALKER. DOES OWN CLOTHING ADJUSTMENTS AND HYGIENE. DECLINED OFFER OF A SNACK. TOOK MEDS WHOLE WITH WATER.
[2017-05-06 20:20] VITALS: BP 127/67
[2017-05-07 04:52] LABS: PROTIME 28.6 Seconds (9.20-11.50)
--- NOTE | 2017-05-07 05:30 | NUR ---
RESTED QUIETLY. UP X ONE THIS MORNING TO THE BATHROOM TO VOID. PAIN MED GIVEN THIS AM FOR C/O LEFT HIP PAIN WITH RELIEF. HOURLY ROUNDING IN PROGRESS.
[2017-05-07 08:34] VITALS: BP 132/61
[2017-05-07] MEDS ORDERED: MELATONIN3 MG PO (14:49)
[2017-05-07] MEDS ORDERED: MILK OF MA2400 MG/10 PO (14:51)
[2017-05-07 14:52] VITALS: BP 132/61
--- NOTE | 2017-05-07 14:54 | NUR ---
SW followed up with pt about dc plans for today. Pt said that after she thought more about it and called her children, she would agree to go to [facility] after all. 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 PRESTON faxed final orders and med list.
[2017-05-07] MEDS ORDERED: ACETAMINOPHEN325 M3 PO (14:59)
[2017-05-07] MEDS ORDERED: ALUMINUM H600 MG/5 M PO (15:02)
[2017-05-07] MEDS ORDERED: ZOFRAN ODT4 MG SUBLING (15:04)
[2017-05-07] MEDS ORDERED: MIRALAX17 G1 PO (15:06)
[2017-05-07] MEDS ORDERED: COUMADIN 4 MG TA4 M1 PO (15:11)
[2017-05-07 16:00] VITALS: BP 132/61
--- NOTE | 2017-05-07 16:17 | NUR ---
ASSUMED CARE AT 0730. ALERT ORIENTED PLEASANT COOPERATIVE. HX OF L HIP FX WEIGHT BEARING TOLERATED LLE. TRANSFERS WITH SBA G BELT WALKER AND AMBULATES TO BR TO VOID ABLE TO DO HYGEINE AND CLOTHING ADJUSTMENTS. PARTICIPATING IN THERAPIES THROUGHOUT THE DAY. MEDICATED WITH PRN MEDS FOR L HIP PAIN WITH SOME RELIEF STATED. USING CALL LIGHT APPROPRIATELY FOR ASSIST. BED CHAIR ALARM FOR PT. SAFETY. FEEDS SELF TAKES MEDS WITHOUT DIFFICULTY. DISMISSED AT 1600 WITH W/C VAN TO [facility] WITH CHART AND ALL BELONGINGS. REPORT CALLED TO ALEJA AT [facility].
--- NOTE | 2017-06-22 14:42 | D ---
[facility] [address] [place] [address] DISCHARGE SUMMARY Name: ADI BOOGIE Room: [address] IN M.R.#: [id number] Admission: 04/21/17 Attend Phys: Gely Mccromack DO Discharge: 05/07/17 Date of : 37 Report #: [id number] THIS REPORT FOR: //name// CC: Gely Mccormack Dima Mooney DATE OF SERVICE: 05/07/2017 DISCHARGE DIAGNOSIS: Left hip fracture managed conservatively by Orthopedic Surgery. DISCHARGE DISPOSITION: To [facility] for ongoing subacute rehabilitation with physical and occupational therapy. She is a full code. REHABILITATION PROGNOSIS: Good. Weightbearing is full. She will be maintained on a regular diet. Medications were reviewed, reconciled by myself and are available in the [facility]. DISCHARGE PHYSICAL EXAMINATION: GENERAL: Alert, oriented, no apparent distress. VITAL SIGNS: Reviewed and are stable. HEENT: Head atraumatic, normocephalic. Pupils equal, round, reactive. ABDOMEN: Soft, nontender, nondistended. SKIN: Warm and dry. No rashes or lesions are noted. DISCHARGE INSTRUCTIONS: She will maintain hip precautions and follow up with Orthopedic Surgery as well as her primary care physician. <ELECTRONICALLY SIGNED> By: Gely Mccormack DO 06/22/17 1442 1339 [id number] Mccormack DO /nt
== END 2017-05-07 16:00 | DRG 536 ==
LOC: M.REH 17:16
PROVIDERS: Internal Medicine; ADMIT Physical Medicine & Rehabilitation
DX: S72.115A Nondisplaced fracture of greater trochanter of left femur, initial encounter for closed fracture (principal); G62.9 Polyneuropathy, unspecified; F32.9 Major depressive disorder, single episode, unspecified; K58.9 Irritable bowel syndrome, unspecified; I12.9 Hypertensive chronic kidney disease with stage 1 through stage 4 chronic kidney disease, or unspecified chronic kidney disease; N18.9 Chronic kidney disease, unspecified; Z96.651 Presence of right artificial knee joint; I95.9 Hypotension, unspecified; K21.9 Gastro-esophageal reflux disease without esophagitis; I25.10 Atherosclerotic heart disease of native coronary artery without angina pectoris; Z87.442 Personal history of urinary calculi; Z90.49 Acquired absence of other specified parts of digestive tract; Z90.710 Acquired absence of both cervix and uterus; Z86.718 Personal history of other venous thrombosis and embolism; Z79.01 Long term (current) use of anticoagulants; Z79.899 Other long term (current) drug therapy; Z88.6 Allergy status to analgesic agent; Z88.2 Allergy status to sulfonamides; Z88.8 Allergy status to other drugs, medicaments and biological substances; Z87.81 Personal history of (healed) traumatic fracture; W19.XXXA Unspecified fall, initial encounter; Y93.89 Activity, other specified; Y92.098 Other place in other non-institutional residence as the place of occurrence of the external cause; Y99.8 Other external cause status; Z82.49 Family history of ischemic heart disease and other diseases of the circulatory system

== ENCOUNTER 2017-06-11 09:53 | Emergency (ER) | payer MEDICARE, BC ==
[~2017-06-11] VITALS: Ht 154.9 cm; Wt 56.7 kg
[~2017-06-11 09:53] MED LIST changes: +ACETAMINOPHEN325 M3 PO; +ALUMINUM H600 MG/5 M PO; +MELATONIN3 MG PO; +MILK OF MA2400 MG/10 PO; +MIRALAX17 G1 PO; +ZOFRAN ODT4 MG SUBLING
[2017-06-11 10:30] LABS: ABSOLUTE EOSINOPHILS 0.4 thou/uL (0.0-0.7); ABSOLUTE LYMPHOCYTES 1.1 thou/uL (0.8-5.3); ABSOLUTE MONOCYTES 0.4 thou/uL (0.0-1.2); ABSOLUTE NEUTROPHILS 3.1 thou/uL (1.6-8.1); BASOPHILS 0.7 %; EOSINOPHILS 7.1 %; HEMATOCRIT 37.1 % (37.0-47.0); HEMOGLOBIN 11.6 gm/dL (12.0-15.0); LYMPHOCYTES 22.3 %; MCH 26.6 pg (26.0-34.0); MCHC 31.2 g/dL (28.0-37.0); MCV 85.2 fL (80.0-100.0); MONOCYTES 8.7 %; MPV 8.5 fl. (7.2-11.1); NUCLEATED RBCS 0 /100WBC; PLATELET COUNT* 261 thou/uL (150-400); POLYS 61.2 %; RBC 4.36 mil/uL (4.20-5.00); RDW-CV 15.6 % (10.5-14.5)
[2017-06-11 10:33] LABS: CALCIUM 8.6 mg/dL (8.5-10.1); CREATININE 1.3 mg/dL (0.6-1.3); POTASSIUM 3.6 mmol/L (3.5-5.1)
[2017-06-11 10:37] LABS: ALBUMIN 3.1 g/dL (3.4-5.0); APTT 37.8 Seconds (25.0-31.3); PROTIME 28.3 Seconds (9.20-11.50); TOTAL BILIRUBIN 0.4 mg/dL (<0.1-1.0); TOTAL PROTEIN 6.8 g/dL (6.4-8.2)
[2017-06-11 10:53] VITALS: BP 134/71
== END 2017-06-11 10:55 | disposition home or self-care (01) ==
LOC: M.ERS 09:53
PROVIDERS: Personal Emergency Response Attendant
DX: R79.89 Other specified abnormal findings of blood chemistry (principal); Z96.651 Presence of right artificial knee joint; Z90.710 Acquired absence of both cervix and uterus; Z88.5 Allergy status to narcotic agent; Z88.1 Allergy status to other antibiotic agents; Z88.2 Allergy status to sulfonamides; Z88.8 Allergy status to other drugs, medicaments and biological substances; Z90.49 Acquired absence of other specified parts of digestive tract; Z98.890 Other specified postprocedural states

== ENCOUNTER → 2017-09-29 | Outpatient (CLI) | payer MEDICARE, BC | LOC: M.CT 10:51 | DX: M84.750A Atypical femoral fracture, unspecified, initial encounter for fracture (principal) ==

== ENCOUNTER 2018-01-02 21:40 | Emergency (ER) | payer MEDICARE, BC ==
[~2018-01-02] VITALS: Ht 154.9 cm; Wt 56.7 kg
[2018-01-02 23:05] VITALS: BP 123/64
== END 2018-01-02 23:06 | disposition home or self-care (01) ==
LOC: M.ERS 21:40
DX: S51.011A Laceration without foreign body of right elbow, initial encounter (principal); Z87.442 Personal history of urinary calculi; Z96.651 Presence of right artificial knee joint; Z90.710 Acquired absence of both cervix and uterus; Z88.6 Allergy status to analgesic agent; Z88.5 Allergy status to narcotic agent; Z88.2 Allergy status to sulfonamides; Z88.1 Allergy status to other antibiotic agents; Z88.8 Allergy status to other drugs, medicaments and biological substances; W26.8XXA Contact with other sharp object(s), not elsewhere classified, initial encounter; Y93.89 Activity, other specified; Y92.89 Other specified places as the place of occurrence of the external cause; Y99.8 Other external cause status

== ENCOUNTER → 2018-03-23 | Outpatient (CLI) | payer MEDICARE, BC ==
[2018-03-23 13:50] LABS: CALCIUM 8.7 mg/dL (8.5-10.1); CREATININE 1.4 mg/dL (0.6-1.3)
== END ==
LOC: M.LAB 12:47
PROVIDERS: Internal Medicine Cardiovascular Disease
DX: I10 Essential (primary) hypertension (principal); R07.89 Other chest pain

== ENCOUNTER 2018-06-10 13:24 | Emergency (ER) | payer MEDICARE, BC ==
[~2018-06-10] VITALS: Ht 152.4 cm; Wt 57.6 kg
[2018-06-10 14:08] LABS: ABSOLUTE BASOPHILS 0.1 thou/uL (0.0-0.2); ABSOLUTE EOSINOPHILS 0.2 thou/uL (0.0-0.7); ABSOLUTE LYMPHOCYTES 0.9 thou/uL (0.8-5.3); ABSOLUTE MONOCYTES 0.6 thou/uL (0.0-1.2); BASOPHILS 0.8 %; EOSINOPHILS 2.4 %; HEMATOCRIT 35.5 % (37.0-47.0); HEMOGLOBIN 11.4 gm/dL (12.0-15.0); LYMPHOCYTES 13.5 %; MCH 27.1 pg (26.0-34.0); MCV 84.7 fL (80.0-100.0); MONOCYTES 8.9 %; MPV 7.8 fl. (7.2-11.1); NUCLEATED RBCS 0 /100WBC; PLATELET COUNT* 297 thou/uL (150-400); POLYS 74.4 %; RBC 4.19 mil/uL (4.20-5.00); RDW-CV 15.7 % (10.5-14.5); WBC 6.7 thou/uL (4.0-11.0)
[2018-06-10 14:15] LABS: APTT 42.2 Seconds (25.0-31.3); INR 3.4
[2018-06-10 14:19] LABS: ALBUMIN 2.9 g/dL (3.4-5.0); CALCIUM 9.2 mg/dL (8.5-10.1); CREATININE 1.4 mg/dL (0.6-1.3); POTASSIUM 3.9 mmol/L (3.5-5.1); TOTAL BILIRUBIN 0.4 mg/dL (<0.1-1.0); TOTAL PROTEIN 6.5 g/dL (6.4-8.2)
[2018-06-10] MEDS ORDERED: NORCO 5-325 TA1 EACH PO (14:43)
[2018-06-10] MEDS ORDERED: PROAIR HFA8.5 GM INH (14:45)
[2018-06-10] MEDS ORDERED: VIBRAMYCIN 100100 M2 PO (14:45)
[2018-06-10 15:20] VITALS: BP 135/68
== END 2018-06-10 15:31 | disposition home or self-care (01) ==
LOC: M.ERS 13:24
PROVIDERS: Physician Assistant
DX: S22.42XA Multiple fractures of ribs, left side, initial encounter for closed fracture (principal); J18.9 Pneumonia, unspecified organism; Z88.6 Allergy status to analgesic agent; Z88.8 Allergy status to other drugs, medicaments and biological substances; Z88.5 Allergy status to narcotic agent; Z88.2 Allergy status to sulfonamides; Z88.1 Allergy status to other antibiotic agents; Z96.651 Presence of right artificial knee joint; Z87.442 Personal history of urinary calculi; Z90.49 Acquired absence of other specified parts of digestive tract; Z90.710 Acquired absence of both cervix and uterus; W18.39XA Other fall on same level, initial encounter; Y92.89 Other specified places as the place of occurrence of the external cause; Y93.89 Activity, other specified; Y99.8 Other external cause status

== ENCOUNTER → 2018-07-13 | Outpatient (CLI) | payer MEDICARE, BC ==
[~2018-07-13] MED LIST changes: +NORCO 5-325 TA1 EACH PO; +PROAIR HFA8.5 GM INH; +VIBRAMYCIN 100100 M2 PO
[2018-07-13 14:55] LABS: HEMATOCRIT 36.8 % (37.0-47.0); HEMOGLOBIN 11.8 gm/dL (12.0-15.0); MCH 27.1 pg (26.0-34.0); MCHC 32.1 g/dL (28.0-37.0); MCV 84.5 fL (80.0-100.0); MPV 7.5 fl. (7.2-11.1); RBC 4.36 mil/uL (4.20-5.00); RDW-CV 16.4 % (10.5-14.5); WBC 6.2 thou/uL (4.0-11.0)
[2018-07-13 15:04] LABS: CLARITY CLOUDY; SOURCE SYNOVAL; TOTAL VOLUME 30 ml
[2018-07-13 15:35] LABS: BF RBC 60526 /mm3
[2018-07-13 15:36] LABS: TOTAL CELL COUNT 650 /mm3
[2018-07-13 15:38] LABS: BF LYMPHOCYTES 6 %; BF MONOCYTES 4 %; BF POLYS 90 %; BF TISSUE 3 /100 WBC
[2018-07-14 08:08] LABS: BODY FLUID PROTEIN 3.3 g/dL (())
[2018-07-15 11:13] LABS: SOURCE SYNOVIAL
== END ==
LOC: M.LAB 14:09
PROVIDERS: Orthopaedic Surgery
DX: M25.511 Pain in right shoulder (principal)

== ENCOUNTER → 2018-07-19 | Outpatient (CLI) | payer MEDICARE, BC | LOC: M.MRI 15:30 | DX: M75.121 Complete rotator cuff tear or rupture of right shoulder, not specified as traumatic (principal); M19.011 Primary osteoarthritis, right shoulder ==

== ENCOUNTER → 2018-07-26 | Outpatient (CLI) | payer MEDICARE, BC ==
[2018-07-26] VITALS (14 sets, daily range): BP systolic 125–144; BP diastolic 59–81
[~2018-07-26] VITALS: Ht 154.9 cm; Wt 55.8 kg
[2018-07-26 09:10] LABS: INR 1.4
[2018-07-26 13:25] LABS: BF LYMPHOCYTES 1 %; BF MONOCYTES 8 %; BF POLYS 91 %
[2018-07-26 13:27] LABS: CLARITY CLOUDY; SOURCE SYNOVIAL; TOTAL CELL COUNT 777 /mm3; TOTAL VOLUME 27 ml
[2018-07-26 13:28] LABS: BF RBC 14342 /mm3
--- NOTE | 2018-07-28 14:07 | PATH ---
[address] [address] PATHOLOGY RPT PROCEDURE Name: MALKA BOOGIE Room: [facility] Hannah#: [id number] Admission: 07/26/18 Date of : 37 Discharge: Report #: [id number] Path Case #: [id number] [facility] Accession Number: [id number] . 01 Material submitted: . humerus - RIGHT HUMERAL HEAD BIOPSY, CT GUIDANCE CORE. Modifiers: right, head . 02 Diagnosis: Right humeral head, CT guided core biopsy: - Benign fibrovascular connective tissue and blood, without bone present. (LIEN/db; 07/28/2018) LBQ/07/28/2018 . 02 Electronically signed: . Og Rodrigues MD, Pathologist NPI- [id number] . 01 Gross description: . The specimen is received in formalin, labeled "Malka Boogie, right humeral head, biopsy", consists of abundant black brown clot admixed with possible tellez-brown bone. The aggregate measures 1.0 x 0.7 x 0.2 cm. The specimen is entirely submitted in A1 for serial multiple step sectioning, after decalcification in Immunocal. ([facility]; 07/26/2018) SHS/SHS . 02 Pathologist provided ICD-10: M86.8X1 . 02 CPT . 663838, [id number] Specimen Comment: A courtesy copy of this report has been sent to Specimen Comment: [phone], , . Specimen Comment: Report sent to ,DR CRABTREE / DR HOOD Performed at: 01 [facility] [address], [place], [place] [id number] MD Tee Espinoza MD Phone: [phone] Performed at: [address], [place], [place] [id number] MD Og Rodrigues MD Phone: [phone]
== END | disposition home or self-care (01) ==
LOC: M.CT 08:20
PROVIDERS: Orthopaedic Surgery
DX: M86.8X2 Other osteomyelitis, upper arm (principal); Z98.890 Other specified postprocedural states; Z79.899 Other long term (current) drug therapy

== ENCOUNTER → 2018-08-02 | Outpatient (CLI) | payer MEDICARE, BC ==
[2018-08-02 14:06] LABS: CALCIUM 8.6 mg/dL (8.5-10.1); POTASSIUM 3.1 mmol/L (3.5-5.1)
== END ==
LOC: M.LAB 12:52
PROVIDERS: Internal Medicine Cardiovascular Disease
DX: R06.09 Other forms of dyspnea (principal)

== ENCOUNTER → 2018-08-05 | Outpatient (CLI) | payer MEDICARE, BC | LOC: M.LAB 15:50 | DX: M65.811 Other synovitis and tenosynovitis, right shoulder (principal) ==

== ENCOUNTER → 2018-08-31 | Outpatient (CLI) | payer MEDICARE, BC | LOC: M.LAB 11:45 | DX: E87.6 Hypokalemia (principal) ==